=== PATIENT | female | born 1945 | race Caucasian/White ===

== ENCOUNTER 2017-08-04 10:51 | Emergency (ER) | payer MEDICARE, BC ==
[~2017-08-04] VITALS: Ht 154.9 cm; Wt 90.0 kg
[2017-08-04] MEDS ORDERED: LISINOPRIL20 MG PO (11:16)
[2017-08-04] MEDS ORDERED: AMLODIPINE5 MG PO (11:17)
[2017-08-04] MEDS ORDERED: FLUOXETINE10 M2 PO (11:17)
[2017-08-04] MEDS ORDERED: HYDROCHLOROT25 MG PO (11:17)
[2017-08-04] MEDS ORDERED: ALENDRONATE70 MG PO (11:18)
[2017-08-04] MEDS ORDERED: ZPAK PO (11:25)
[2017-08-04 11:38] VITALS: BP 127/74
== END 2017-08-04 11:38 | disposition home or self-care (01) ==
LOC: ED 10:51
DX: J01.90 Acute sinusitis, unspecified (principal); I10 Essential (primary) hypertension; Z87.01 Personal history of pneumonia (recurrent); Z87.442 Personal history of urinary calculi

== ENCOUNTER 2017-08-16 07:39 | Emergency (ER) | payer MEDICARE, BC ==
[~2017-08-16] VITALS: Ht 154.9 cm; Wt 90.0 kg
[~2017-08-16 07:39] MED LIST: ALENDRONATE70 MG PO; AMLODIPINE5 MG PO; FLUOXETINE10 M2 PO; HYDROCHLOROT25 MG PO; LISINOPRIL20 MG PO; ZPAK PO
[2017-08-16 08:52] LABS: INFLUENZA A NONE DETECTED (NONE DETECT); INFLUENZA B NONE DETECTED (NONE DETECT)
[2017-08-16] MEDS ORDERED: ROBITUSSIN AC10 ML PO (09:08)
[2017-08-16] MEDS ORDERED: CEPHALEXIN500 MG PO (09:08)
[2017-08-16 09:36] VITALS: BP 152/74
== END 2017-08-16 09:48 | disposition home or self-care (01) ==
LOC: ED 07:39
PROVIDERS: Emergency Medicine
DX: J06.9 Acute upper respiratory infection, unspecified (principal); J32.9 Chronic sinusitis, unspecified; I88.9 Nonspecific lymphadenitis, unspecified; I10 Essential (primary) hypertension; Z98.84 Bariatric surgery status; Z87.442 Personal history of urinary calculi; Z87.01 Personal history of pneumonia (recurrent)

== ENCOUNTER 2018-06-16 13:45 | Emergency (ER) | payer MEDICARE, BC ==
[~2018-06-16] VITALS: Ht 154.9 cm; Wt 93.1 kg
[~2018-06-16 13:45] MED LIST changes: +CEPHALEXIN500 MG PO; +ROBITUSSIN AC10 ML PO
--- NOTE | 2018-06-16 15:07 | NUR ---
BREATHING TREATMENT GIVEN. BREATHING TECH. FOR GOOD DEPOSITION TO THE LUNGS.
[2018-06-16] MEDS ORDERED: TESSALON PERLE100 MG PO (15:32)
[2018-06-16] MEDS ORDERED: ZITHROMAX250 MG PO (15:32)
[2018-06-16] MEDS ORDERED: MEDDOSEPAK PO (15:32)
[2018-06-16] MEDS ORDERED: PROVENTIL108 MCG/AC IN (15:32)
[2018-06-16 15:37] VITALS: BP 136/72
== END 2018-06-16 15:37 | disposition home or self-care (01) ==
LOC: ED 13:45
DX: J06.9 Acute upper respiratory infection, unspecified (principal); I10 Essential (primary) hypertension; Z98.84 Bariatric surgery status

== ENCOUNTER 2018-09-28 09:11 | Emergency (ER) | payer MEDICARE, BC ==
[~2018-09-28] VITALS: Ht 154.9 cm; Wt 200.0 kg
[~2018-09-28 09:11] MED LIST changes: +MEDDOSEPAK PO; +PROVENTIL108 MCG/AC IN; +TESSALON PERLE100 MG PO; +ZITHROMAX250 MG PO
[2018-09-28] MEDS ORDERED: LISINOPRIL20 M1 PO (10:46)
[2018-09-28] MEDS ORDERED: AMLODIPINE5 MG PO (10:47)
[2018-09-28] MEDS ORDERED: HYDROCHLOROT25 MG PO (10:47)
[2018-09-28] MEDS ORDERED: FLUOXETINE10 M2 PO (10:48)
[2018-09-28] MEDS ORDERED: CYCLOBENZAPR5 MG PO (12:44)
[2018-09-28] MEDS ORDERED: VOLTAREN1%GEL TOP (12:44)
[2018-09-28] MEDS ORDERED: CONZIP100 MG PO (12:46)
[2018-09-28 13:20] VITALS: BP 131/79
== END 2018-09-28 13:20 | disposition home or self-care (01) ==
LOC: ED 09:11
DX: S86.912A Strain of unspecified muscle(s) and tendon(s) at lower leg level, left leg, initial encounter (principal); M25.562 Pain in left knee; M17.32 Unilateral post-traumatic osteoarthritis, left knee; W01.10XA Fall on same level from slipping, tripping and stumbling with subsequent striking against unspecified object, initial encounter; Y92.810 Car as the place of occurrence of the external cause
CPT/HCPCS: L1830

== ENCOUNTER 2020-06-19 16:04 | Inpatient (IN) | payer MEDICARE, BC ==
[2020-06-19] VITALS (20 sets, daily range): BP systolic 77–186; BP diastolic 37–96
[~2020-06-19] VITALS: Ht 154.9 cm; Wt 106.0 kg
[~2020-06-19 16:04] MED LIST changes: +CONZIP100 MG PO; +CYCLOBENZAPR5 MG PO; +LISINOPRIL20 M1 PO; +NORVASC5 M1 PO; +VOLTAREN1%GEL TOP
[2020-06-19] MEDS ORDERED: DITROPAN XL10 MG PO (16:47)
[2020-06-19 16:59] LABS: HEMATOCRIT 44.5 % (37.0-47.0); HEMOGLOBIN 13.3 g/dl (12.0-16.0); IMMATURE GRANULOCYTES 0.3 % (0.0-5.0); MEAN CELL VOLUME 91.2 fL CALC (80.0-100.0); MEAN CORPUSCULAR HGB 27.3 pG CALC (26.0-32.0); MEAN CORPUSCULAR HGB CONC 29.9 g/dL CAL (32.0-36.0); NEUT# 5.74 thou/uL (2.00-7.15); RED BLOOD COUNT 4.88 mill/uL (4.20-5.60); RED CELL DISTRI WIDTH 13.9 % (11.5-15.5)
[2020-06-19 17:35] LABS: ALBUMIN 4.1 g/dL (3.2-5.0); ALKALINE PHOSPHATASE 86 u/l (38-126); ANION GAP 13 (6-22 (CALC)); BILIRUBIN, TOTAL 0.4 mg/dL (0.0-1.4); BUN 16 mg/dL (8-23); BUN/CREATININE RATIO 22 (12-20 (CALC)); CARBON DIOXIDE 26 mmol/l (22-30); CHLORIDE 101 mmol/l (95-108); CREATININE 0.7 mg/dL (0.5-1.0); GFR > 60 ML/MIN (>=60 (CALC)); GFR FOR AFR.AMER. > 60 ML/MIN (>=60 (CALC)); POTASSIUM 3.7 mmol/l (3.5-5.1); SGOT/AST 23 u/l (9-36); SODIUM 136 mmol/l (137-146); TOTAL PROTEIN 7.4 g/dL (6.3-8.2)
[2020-06-19 20:19] LABS: URINE BILIRUBIN - DIPSTICK NEGATIVE (NEGATIVE); URINE BLOOD DIPSTICK MODERATE (NEGATIVE); URINE CLARITY CLEAR; URINE COLOR YELLOW; URINE GLUCOSE - DIPSTICK NEGATIVE (NEGATIVE); URINE KETONE NEGATIVE (NEGATIVE); URINE LEUK ESTERASE SMALL (Negative); URINE NITRITE - DIPSTICK POSITIVE (Negative); URINE PH 6.5 (4.5-8.0); URINE PROTEIN - DIPSTICK NEGATIVE (NEG-TRACE); URINE UROBILINOGEN - DIPSTICK 0.2 E.U./dL (0.2)
[2020-06-19 20:29] LABS: URINE BACTERIA MODERATE hpf; URINE SQUAMOUS EPITHELIAL CELL FEW EPI/hpf (0-FEW)
[2020-06-20] VITALS (34 sets, daily range): BP systolic 99–151; BP diastolic 40–60
[2020-06-20 05:01] LABS: HEMOGLOBIN 12.2 g/dl (12.0-16.0); IMMATURE GRANULOCYTES 0.5 % (0.0-5.0); MEAN CELL VOLUME 86.5 fL CALC (80.0-100.0); MEAN CORPUSCULAR HGB 27.5 pG CALC (26.0-32.0); MEAN CORPUSCULAR HGB CONC 31.8 g/dL CAL (32.0-36.0); NEUT# 11.04 thou/uL (2.00-7.15); RED BLOOD COUNT 4.44 mill/uL (4.20-5.60); RED CELL DISTRI WIDTH 13.7 % (11.5-15.5)
[2020-06-20 05:10] LABS: HEMATOCRIT 38.4 % (37.0-47.0)
[2020-06-20 05:30] LABS: ANION GAP 10 (6-22 (CALC)); BUN 13 mg/dL (8-23); BUN/CREATININE RATIO 21 (12-20 (CALC)); CARBON DIOXIDE 23 mmol/l (22-30); CHLORIDE 103 mmol/l (95-108); CREATININE 0.7 mg/dL (0.5-1.0); GFR > 60 ML/MIN (>=60 (CALC)); GFR FOR AFR.AMER. > 60 ML/MIN (>=60 (CALC)); POTASSIUM 3.6 mmol/l (3.5-5.1); SODIUM 132 mmol/l (137-146)
[2020-06-21] VITALS (41 sets, daily range): BP systolic 119–163; BP diastolic 57–85
[2020-06-21 06:40] LABS: HEMATOCRIT 35.2 % (37.0-47.0); HEMOGLOBIN 11.3 g/dl (12.0-16.0); MEAN CELL VOLUME 86.3 fL CALC (80.0-100.0); MEAN CORPUSCULAR HGB 27.7 pG CALC (26.0-32.0); MEAN CORPUSCULAR HGB CONC 32.1 g/dL CAL (32.0-36.0); RED BLOOD COUNT 4.08 mill/uL (4.20-5.60); RED CELL DISTRI WIDTH 14.1 % (11.5-15.5)
[2020-06-21 06:45] LABS: ANION GAP 9 (6-22 (CALC)); BUN 10 mg/dL (8-23); BUN/CREATININE RATIO 13 (12-20 (CALC)); CARBON DIOXIDE 23 mmol/l (22-30); CHLORIDE 109 mmol/l (95-108); CREATININE 0.7 mg/dL (0.5-1.0); GFR > 60 ML/MIN (>=60 (CALC)); GFR FOR AFR.AMER. > 60 ML/MIN (>=60 (CALC)); POTASSIUM 3.9 mmol/l (3.5-5.1); SODIUM 138 mmol/l (137-146)
[2020-06-22] VITALS (40 sets, daily range): BP systolic 98–180; BP diastolic 51–102
[2020-06-22 04:50] LABS: HEMATOCRIT 35.1 % (37.0-47.0); MEAN CELL VOLUME 86.9 fL CALC (80.0-100.0); MEAN CORPUSCULAR HGB 27.2 pG CALC (26.0-32.0); MEAN CORPUSCULAR HGB CONC 31.3 g/dL CAL (32.0-36.0); RED BLOOD COUNT 4.04 mill/uL (4.20-5.60); RED CELL DISTRI WIDTH 14.5 % (11.5-15.5)
[2020-06-22 05:15] LABS: ANION GAP 10 (6-22 (CALC)); BUN 13 mg/dL (8-23); BUN/CREATININE RATIO 21 (12-20 (CALC)); CARBON DIOXIDE 22 mmol/l (22-30); CHLORIDE 111 mmol/l (95-108); CREATININE 0.6 mg/dL (0.5-1.0); GFR > 60 ML/MIN (>=60 (CALC)); GFR FOR AFR.AMER. > 60 ML/MIN (>=60 (CALC)); POTASSIUM 3.8 mmol/l (3.5-5.1); SODIUM 139 mmol/l (137-146)
[2020-06-23] VITALS (9 sets, daily range): BP systolic 138–173; BP diastolic 65–86
[2020-06-23 05:54] LABS: ALKALINE PHOSPHATASE 60 u/l (38-126); BILIRUBIN, TOTAL 0.5 mg/dL (0.0-1.4); BUN 14 mg/dL (8-23); BUN/CREATININE RATIO 20 (12-20 (CALC)); CHLORIDE 109 mmol/l (95-108); CREATININE 0.7 mg/dL (0.5-1.0); GFR > 60 ML/MIN (>=60 (CALC)); GFR FOR AFR.AMER. > 60 ML/MIN (>=60 (CALC)); POTASSIUM 3.7 mmol/l (3.5-5.1); SGOT/AST 26 u/l (9-36); SODIUM 141 mmol/l (137-146); TOTAL PROTEIN 6.2 g/dL (6.3-8.2)
[2020-06-23 05:55] LABS: ALBUMIN 3.2 g/dL (3.2-5.0); ANION GAP 7 (6-22 (CALC)); CARBON DIOXIDE 29 mmol/l (22-30)
[2020-06-24 04:00] VITALS: BP 149/66
[2020-06-24 07:58] VITALS: BP 188/99
[2020-06-24 09:01] VITALS: BP 175/79
[2020-06-24] MEDS ORDERED: PREDNISONE10 MG PO (10:26)
[2020-06-24 13:10] VITALS: BP 142/90
[2020-06-24 16:00] VITALS: BP 183/92
== END 2020-06-24 17:07 | DRG 915 ==
LOC: ED 16:04 → ED-I 22:20 → ED 22:28 → ICU 22:29 → MS2 06-23 12:09
PROVIDERS: Family Medicine; ADMIT Internal Medicine; ATTEND Internal Medicine
PROC: 02HV33Z Insertion of Infusion Device into Superior Vena Cava, Percutaneous Approach (ICD-10-PCS; principal; 2020-06-19)
PROC: 0BH17EZ Insertion of Endotracheal Airway into Trachea, Via Natural or Artificial Opening (ICD-10-PCS; 2020-06-19)
PROC: 5A1945Z Respiratory Ventilation, 24-96 Consecutive Hours (ICD-10-PCS; 2020-06-19)
PROC: 0T9B70Z Drainage of Bladder with Drainage Device, Via Natural or Artificial Opening (ICD-10-PCS; 2020-06-19)
DX: T78.3XXA Angioneurotic edema, initial encounter (principal); J96.00 Acute respiratory failure, unspecified whether with hypoxia or hypercapnia; I10 Essential (primary) hypertension; R53.1 Weakness; R91.1 Solitary pulmonary nodule; Z20.822 Contact with and (suspected) exposure to COVID-19; Z79.899 Other long term (current) drug therapy; Z98.84 Bariatric surgery status
CPT/HCPCS: J0171; J1650; Q9967; S0164

== ENCOUNTER 2024-07-27 14:22 | Emergency (ER) | payer MEDICARE, BC ==
[~2024-07-27] VITALS: Ht 154.9 cm; Wt 85.4 kg
[~2024-07-27 14:22] MED LIST changes: +DITROPAN XL10 MG PO; +PREDNISONE10 MG PO
[2024-07-27] MEDS ORDERED: ALBUTEROL SULFATE 2.5 MG VIAL IN ONE (15:00)
[2024-07-27 15:30] LABS: BASO% 0.5 % (0-3); HEMATOCRIT 38.7 % (37.0-47.0); HEMOGLOBIN 11.8 g/dl (12.0-16.0); LYMPH% 24.4 % (15-41); MEAN CELL VOLUME 89.4 fL CALC (80.0-100.0); MEAN CORPUSCULAR HGB 27.3 pG CALC (26.0-32.0); MEAN CORPUSCULAR HGB CONC 30.5 g/dL CAL (32.0-36.0); MONO% 13.8 % (2-13); NEUT# 4.3 thou/uL (2.00-7.15); NEUT% 58.3 % (42-76); RED BLOOD COUNT 4.33 mill/uL (4.20-5.60)
[2024-07-27 15:42] LABS: ALBUMIN 3.6 g/dL (3.2-5.0); ALKALINE PHOSPHATASE 68 u/l (38-126); ANION GAP 8 (6-22 (CALC)); BILIRUBIN, TOTAL 0.4 mg/dL (0.02-1.3); BUN 12 mg/dL (8-23); BUN/CREATININE RATIO 16 (12-20 (CALC)); CARBON DIOXIDE 31 mmol/l (22-30); CHLORIDE 102 mmol/l (95-108); CREATININE 0.8 mg/dL (0.5-1.0); ESTIMATED GFR 76 ML/MIN (>=90 (CALC)); LIPASE 83 u/l (23-300); SGOT/AST 23 u/l (9-36); SODIUM 136 mmol/l (137-146); TOTAL PROTEIN 6.6 g/dL (6.3-8.2)
[2024-07-27 15:43] LABS: POTASSIUM 4.7 mmol/l (3.5-5.1)
[2024-07-27 16:06] VITALS: BP 128/58
[2024-07-27 16:15] VITALS: BP 122/55
[2024-07-27 16:30] VITALS: BP 138/64
[2024-07-27 16:45] VITALS: BP 120/59
[2024-07-27 17:01] VITALS: BP 158/72
[2024-07-27] MEDS ORDERED: DEXAMETHASON6 MG PO (17:33)
[2024-07-27] MEDS ORDERED: DOXYCYCLINE100 MG PO (17:33)
[2024-07-27] MEDS ORDERED: [UNRECOGNIZED DRUG - OTHER] PO (17:33)
[2024-07-27 17:42] VITALS: BP 158/72
[2024-07-27] MEDS ORDERED: VENTOLIN HFA108 MCG PO (17:42)
== END 2024-07-27 18:06 | disposition home or self-care (01) ==
LOC: ED 14:22
PROVIDERS: Emergency Medicine
DX: J98.09 Other diseases of bronchus, not elsewhere classified (principal); I10 Essential (primary) hypertension; Z98.84 Bariatric surgery status; Z20.822 Contact with and (suspected) exposure to COVID-19